=== PATIENT | male | born 1955 | race Caucasian/White ===

== ENCOUNTER 2017-05-26 23:15 | Emergency (ER) | payer OTHER ==
[~2017-05-26] VITALS: Ht 182.9 cm; Wt 89.0 kg
[2017-05-26 23:17] VITALS: BP 142/79
== END 2017-05-26 23:26 | disposition left against medical advice (07) ==
LOC: ED 23:20
DX: R07.9 Chest pain, unspecified (principal); Z53.21 Procedure and treatment not carried out due to patient leaving prior to being seen by health care provider